=== PATIENT | female | born 2005 | race African-American/Black ===

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

== ENCOUNTER 2023-08-21 08:03 | Emergency (ER) | payer MEDICAID ==
[~2023-08-21] VITALS: Ht 170.2 cm; Wt 190.0 kg
[~2023-08-21 08:03] MED LIST: IBUP-2029 MT
[2023-08-21 08:29] VITALS: O2SAT 98
[2023-08-21 09:02] VITALS: BP 127/73; PULSE 93; RESP 16; TEMP 96.7
[2023-08-21] MEDS ORDERED: ACETAMINOPHEN 325MG TABLET PO ONE (09:15)
== END 2023-08-21 09:17 | disposition home or self-care (01) ==
LOC: ER 08:03
DX: J11.1 Influenza due to unidentified influenza virus with other respiratory manifestations (principal); J45.909 Unspecified asthma, uncomplicated
CPT/HCPCS: 99281

== ENCOUNTER 2024-06-11 15:25 | Emergency (ER) | payer MEDICAID ==
[~2024-06-11] VITALS: Ht 175.3 cm; Wt 100.0 kg
[2024-06-11 15:41] VITALS: BP 127/73; PULSE 93; RESP 18; TEMP 36.7; O2SAT 100
== END 2024-06-11 17:17 | disposition left against medical advice (07) ==
LOC: ER 15:25
DX: M79.669 Pain in unspecified lower leg (principal); Z53.21 Procedure and treatment not carried out due to patient leaving prior to being seen by health care provider